=== PATIENT | female | born 1990 | race Two or more races ===

== ENCOUNTER 2022-09-27 13:40 | Inpatient (IN) | payer OTHER ==
[~2022-09-27] VITALS: Ht 162.6 cm; Wt 90.7 kg
[2022-10-01] MEDS ORDERED: IRON325 MG PO (13:10)
[2022-10-01] MEDS ORDERED: PRENATAL 19 CH1 EAC1 PO (13:10)
[2022-10-01] MEDS ORDERED: FUSION PLUS CA1 EACH (14:29)
== END 2022-10-03 14:47 | disposition home or self-care (01) | DRG 788 ==
LOC: LDR 09-29 11:11 → O/R 10-01 12:39 → OB/GYN 10-01 16:48
PROVIDERS: ADMIT Obstetrics & Gynecology; ATTEND Obstetrics & Gynecology
PROC: 4A1HXCZ Monitoring of Products of Conception, Cardiac Rate, External Approach (ICD-10-PCS; 2022-10-01)
PROC: 10D00Z1 Extraction of Products of Conception, Low, Open Approach (ICD-10-PCS; principal; 2022-10-01 13:15)
DX: O82 Encounter for cesarean delivery without indication (principal); Z3A.39 39 weeks gestation of pregnancy; Z37.0 Single live birth; Z20.822 Contact with and (suspected) exposure to COVID-19